=== PATIENT | female | born 1965 | race Caucasian/White ===

== ENCOUNTER 2018-09-20 01:57 | Observation (INO) | payer SELFPAY ==
[2018-09-20] VITALS (8 sets, daily range): BP systolic 118–127; BP diastolic 67–83
[~2018-09-20] VITALS: Ht 157.5 cm; Wt 98.1 kg
--- OUTSIDE RECORDS SUMMARY | 2018-09-20 01:59 | XMS REPORT ---
Author Author [facility] Address Unknown Phone Unavailable Care Team Providers Care Horse Trekking Guide Name Role Phone Unavailable Unavailable Payers Payer Name Policy Type Policy Number Effective Date Expiration Date Problems This patient has no known problems. Allergies, Adverse Reactions, Alerts Allergy Name Allergy Type Status Severity Reaction(s) Onset Date Inactive Date Treating Clinician Comments IODINE CONTRAST DA Active U 2007-05-09 00:00:00 IODINE TOPICAL DA Active U 2007-05-09 00:00:00 No Known Other Allergies DA Active U 2007-05-09 00:00:00 PENICILLIN DA Active U 2007-05-09 00:00:00 SEAFOOD DA Active U 2007-05-09 00:00:00 SHELLFISH DA Active U 2007-05-09 00:00:00 Penicillins DA Active U 2004-08-10 00:00:00 iodine DA Active U 2004-08-10 00:00:00 Medications This patient has no known medications.
[2018-09-20 02:16] LABS: BILIRUBIN,URINE NEGATIVE (NEGATIVE); CLARITY,URINE SL CLOUDY (CLEAR); COLOR,URINE YELLOW (YELLOW); KETONES,URINE NEGATIVE (NEGATIVE); LEUKOCYTE ESTERASE ,URINE TRACE (NEGATIVE); NITRITE,URINE NEGATIVE (NEGATIVE); PROTEIN,URINE DIPSTICK TRACE (NEGATIVE); URINE UROBILINOGEN 0.2 mg/dL (0.2 - 1)
[2018-09-20] MEDS ORDERED: KETOROLAC TROMETHAMINE 30 MG/ML VIAL IV STA (02:23)
[2018-09-20 02:24] LABS: PREGNANCY TEST, URINE NEGATIVE (NEGATIVE)
[2018-09-20 02:27] LABS: BACTERIA,URINE MANY /HPF; EPITHELIAL CELLS,URINE MODERATE /LPF; RBC,URINE >50 /HPF (0-5); WBC,URINE (MAN) >50 /HPF (0-5)
[2018-09-20] MEDS ORDERED: SODIUM CHLORIDE 0.9% 1000ML 1,000 ML IV ONE (02:30)
[2018-09-20 02:34] LABS: BASOPHILS % 0.4 % (0.0-1.0); EOSINOPHILS # (AUTO) 0.2 (0.0-0.4); EOSINOPHILS % 1.6 % (0.0-6.0); HEMATOCRIT 48.2 % (34.2-44.1); HEMOGLOBIN 16.7 g/dL (12.0-16.0); LYMPHOCYTES # (AUTO) 3.4 (1.0-3.2); LYMPHOCYTES % 35.7 % (18.0-39.1); MEAN CORPUSCULAR HEMOGLOBIN 31.9 pg (28-32); MEAN CORPUSCULAR HGB CONC 34.6 g/dL (31-35); MONOCYTES # (AUTO) 0.6 (0.2-0.8); MONOCYTES % 5.7 % (4.4-11.3); NEUTROPHILS # (AUTO) 5.4 (2.1-6.9); NEUTROPHILS % 56.3 % (38.7-80.0); PLATELET COUNT 288 x10e3/uL (140-360); RED BLOOD COUNT 5.24 x10e6/uL (3.6-5.1); RED CELL DISTRIBUTION WIDTH 12.7 % (11.7-14.4)
[2018-09-20 02:48] LABS: ALANINE AMINOTRANSFERASE 18 IU/L (0-55); ALBUMIN/GLOBULIN RATIO 1.2 (0.8-2.0); ALKALINE PHOSPHATASE 53 IU/L (40-150); ANION GAP 16.6 mmol/L (8-16); BLOOD UREA NITROGEN 17 mg/dL (7-26); BUN/CREATININE RATIO 21 (6-25); CARBON DIOXIDE 20 mmol/L (22-29); CHLORIDE 109 mmol/L (98-107); CREATININE, SERUM 0.81 mg/dL (0.57-1.11); EST GLOMERULAR FILTRATION RATE > 60 ML/MIN (60-); GLUCOSE 158 mg/dL (74-118); POTASSIUM 3.6 mmol/L (3.5-5.1); SODIUM 142 mmol/L (136-145)
[2018-09-20] MEDS ORDERED: CEFTRIAXONE SOD 1 GM/NS 50 ML 50 ML IV ONE (03:00)
--- NOTE | 2018-09-20 03:46 | Diagnostic Imaging Report ---
EXAM: CT Abdomen and Pelvis WITHOUT contrast INDICATION: RIGHT FLANK PAIN, HX KIDNEY STONES COMPARISON: None. TECHNIQUE: Abdomen and pelvis were scanned utilizing a multidetector helical scanner from the lung base to the pubic symphysis without administration of IV contrast. Absence of intravenous contrast decreases sensitivity for detection of focal lesions and vascular pathology. Coronal and sagittal reformations were obtained. Routine protocol was performed. IV CONTRAST: None ORAL CONTRAST: None COMPLICATIONS: None RADIATION DOSE: Total DLP: 708 mGy*cm Estimated effective dose: (DLP x 0.015 x size factor) mSv CTDIvol has been reviewed. It is below the limits set by the Radiation Protocol Committee (RPC). Dose modulation, iterative reconstruction, and/or weight based adjustment of the mA/kV was utilized to reduce the radiation dose to as low as reasonably achievable. FINDINGS: LINES and TUBES: None. LOWER THORAX: Unremarkable HEPATOBILIARY: No focal hepatic lesions. No biliary ductal dilation. GALLBLADDER: Surgical clips in the gallbladder fossa. SPLEEN: No splenomegaly. PANCREAS: No focal masses or ductal dilatation. ADRENALS: No adrenal nodules KIDNEYS/URETERS: Right kidney: A 0.6 cm calculus in the proximal right ureter with upstream moderate right hydroureteronephrosis. A nonobstructive 4 mm calculus in the right renal inferior pole calyx. Left kidney:Mild left hydronephrosis. A few nonobstructive 2-3 mm calculi in the left renal inferior pole. No cystic or solid mass lesions. GI TRACT: No abnormal distention, wall thickening, or evidence of bowel obstruction. Appendix is normal. PELVIC ORGANS/BLADDER: Hysterectomy. No adnexal masses.. LYMPH NODES: No lymphadenopathy. VESSELS: There is mild atherosclerotic disease in the aorta. PERITONEUM / RETROPERITONEUM: No free air or fluid. BONES: There are degenerative changes in the lumbar spine. SOFT TISSUES: There is a fat containing para-umbilical hernia. IMPRESSION: 1. A 0.6 cm calculus in the proximal right ureter with upstream moderate right hydroureteronephrosis. 2. Mild left hydronephrosis without clear source for obstruction may be due to stricture at the left renal pelvis. 3. A few additional bilateral nonobstructive calculi within the within the inferior calyces. Signed by: Piter Blount DO on 09/20/2018 3:43 AM
[2018-09-20] MEDS ORDERED: LEVOTHYROXINE100 MCG PO (04:56)
[2018-09-20] MEDS ORDERED: AMLODIPINE BESYL5 MG PO (04:56)
[2018-09-20] MEDS: SODIUM CHLORIDE 0.9% 1000ML 1,000 ML IV SCH ×3 (05:00→20:42)
[2018-09-20] MEDS ORDERED: KETOROLAC TROMETHAMINE 30 MG/ML VIAL IM PRN (05:00)
--- NOTE | 2018-09-20 05:05 | NUR ---
RECEIVED PATIENT AAOX4, AMB W/ STEADY GAIT. DENIES PAIN. RESP EVEN AND UNLABORED, RA. LEFT FA 18G, NS @125. SKIN INTACT. VSS. UPDATED ON PLAN OF CARE. NO NEEDS VOICED. INSTRUCTED TO CALL FOR ASSISTANCE, PATIENT VERBALIZED UNDERSTANDING. REFUSED COAL HANDLER SOCKS- LEFT AT BEDSIDE, REFUSED BED ALARM. AT BEDSIDE. BED LOCKED AND IN LOWEST POSITION, CALL LIGHT WITHIN REACH. WILL CONTINUE TO MONITOR.
--- NOTE | 2018-09-20 07:12 | NUR ---
REPORT GIVEN TO ONCOMING NURSE, PATIENT IN STABLE CONDITION.
--- NOTE | 2018-09-20 07:46 | NUR ---
RECEIVED PATIENT AWAKE RESTING IN BED. NO SIGNS OF DISTRESS. BED LOW, WHEELS LOCKED, SIDE RAILS X2. CALL LIGHT IN REACH WILL CONTINUE TO MONITOR PATIENT.
--- NOTE | 2018-09-20 09:15 | NUR ---
PATIENT A/O X3, EVEN RESPIRATIONS ON RA. LUNG SOUNDS CLEAR TO AUSCULTATION. BOWEL SOUNDS ACTIVE, SKIN INTACT, NO EDEMA. NO PAIN AT THIS TIME. LEFT AC 18 GAUGE NS @ 125 CC/HR. AT BEDSIDE. CALL LIGHT IN REACH. WILL CONTINUE TO MONITOR PATIENT.
--- NOTE | 2018-09-20 14:36 | NUR ---
GAVE PACKET OF INFORMATION WITH [employer] [employer] FOR ASSISTANCE WITH LOW TO NO INCOME TO PATIENT. RESOURCES THAT PATIENT MAY BE ABLE TO FOLLOW UP UPON DISCHARGE. PT EDUCATED ON EACH RESOURCE AND UNDERSTANDING HOW TO FOLLOW UP TO SEE IF QUALIFIED FOR EACH RESOURCE.
--- NOTE | 2018-09-20 19:12 | NUR ---
RECEIVED REPORT. PATIENT AAOX4, STABLE CONDITION. DENIES PAIN. NO NEEDS VOICED. BED LOCKED AND IN LOWEST POSITION, CALL LIGHT WITHIN EASY REACH. WILL CONTINUE TO MONITOR PATIENT.
[2018-09-21 00:02] VITALS: BP 142/87
[2018-09-21] MEDS ORDERED: CEFTRIAXONE SOD 1 GM/NS 50 ML 50 ML IV SCH (03:00)
[2018-09-21] MEDS ORDERED: ACETAMINOPHEN 325 MG TAB PO PRN (04:00)
[2018-09-21] MEDS ORDERED: ONDANSETRON HCL INJ 2MG/ML 2ML 2 MG/ML VIAL IV PRN (04:00)
[2018-09-21] MEDS ORDERED: POLYETHYLENE GLYCOL 3350 17 GM PACK PO PRN (04:00)
[2018-09-21 04:54] VITALS: BP 127/78
[2018-09-21] MEDS: SODIUM CHLORIDE 0.9% 1000ML 1,000 ML IV SCH ×2 (04:55→11:57)
[2018-09-21 04:58] LABS: BASOPHILS % 0.4 % (0.0-1.0); EOSINOPHILS # (AUTO) 0.2 (0.0-0.4); EOSINOPHILS % 2.1 % (0.0-6.0); HEMATOCRIT 44.2 % (34.2-44.1); HEMOGLOBIN 14.9 g/dL (12.0-16.0); LYMPHOCYTES # (AUTO) 2.7 (1.0-3.2); LYMPHOCYTES % 34.9 % (18.0-39.1); MEAN CORPUSCULAR HEMOGLOBIN 31.4 pg (28-32); MEAN CORPUSCULAR HGB CONC 33.7 g/dL (31-35); MEAN CORPUSCULAR VOLUME 93.2 fL (81-99); MONOCYTES # (AUTO) 0.7 (0.2-0.8); MONOCYTES % 9.1 % (4.4-11.3); NEUTROPHILS % 53.2 % (38.7-80.0); PLATELET COUNT 238 x10e3/uL (140-360); RED BLOOD COUNT 4.74 x10e6/uL (3.6-5.1); RED CELL DISTRIBUTION WIDTH 12.6 % (11.7-14.4)
[2018-09-21 05:09] LABS: ANION GAP 12.5 mmol/L (8-16); BLOOD UREA NITROGEN 11 mg/dL (7-26); BUN/CREATININE RATIO 17 (6-25); CARBON DIOXIDE 23 mmol/L (22-29); CHLORIDE 112 mmol/L (98-107); CHOL/HDL RATIO 3.5 (3.0-3.6); CHOLESTEROL 147 MD/DL (0-199); CREATININE, SERUM 0.64 mg/dL (0.57-1.11); EST GLOMERULAR FILTRATION RATE > 60 ML/MIN (60-); GLUCOSE 102 mg/dL (74-118); HDL CHOLESTEROL 42 MG/DL (40-60); LDL CHOLESTEROL 81 MG/DL (60-130); MAGNESIUM 2.4 MG/DL (1.3-2.1); PHOSPHORUS 3.3 MG/DL (2.3-4.7); POTASSIUM 3.5 mmol/L (3.5-5.1); SODIUM 144 mmol/L (136-145); TRIGLYCERIDES 119 MG/DL (0-149)
[2018-09-21] MEDS ORDERED: TRAMADOL HCL 50 MG TAB PO PRN (05:15)
[2018-09-21] MEDS ORDERED: HYDRALAZINE HCL 20 MG/ML VIAL IV PRN (05:15)
[2018-09-21 06:26] LABS: BILIRUBIN,URINE NEGATIVE (NEGATIVE); CLARITY,URINE SL CLOUDY (CLEAR); COLOR,URINE YELLOW (YELLOW); KETONES,URINE NEGATIVE (NEGATIVE); LEUKOCYTE ESTERASE ,URINE NEGATIVE (NEGATIVE); NITRITE,URINE NEGATIVE (NEGATIVE); PROTEIN,URINE DIPSTICK NEGATIVE (NEGATIVE); URINE UROBILINOGEN 0.2 mg/dL (0.2 - 1)
[2018-09-21] MEDS ORDERED: LEVOTHYROXINE SODIUM 125 MCG TAB PO SCH (06:30)
[2018-09-21 06:33] LABS: BACTERIA,URINE RARE /HPF; EPITHELIAL CELLS,URINE FEW /LPF; MUCUS,URINE FEW (RARE); WBC,URINE (MAN) 0-5 /HPF (0-5)
--- NOTE | 2018-09-21 07:09 | NUR ---
RECEIVED PATIENT ASLEEP IN BED NO S/S OF DISTRESS. PRESENT AT BEDSIDE. WHEELS LOCKED, BED IN LOW POSITION, SIDE RAILS X2. CALL LIGHT IN REACH. WILL CONTINUE TO MONITOR PATIENT.
[2018-09-21] MEDS ORDERED: FAMOTIDINE 20 MG TAB PO SCH (07:30)
[2018-09-21 08:14] VITALS: BP 128/67
[2018-09-21] MEDS ORDERED: LEVOTHYROXINE SODIUM 100 MCG TAB PO SCH (09:00)
[2018-09-21] MEDS ORDERED: AMLODIPINE BESYLATE 5 MG TAB PO SCH (09:00)
[2018-09-21] MEDS ORDERED: DOCUSATE SODIUM 100 MG CAP PO SCH (09:00)
[2018-09-21 09:58] VITALS: BP 128/67
[2018-09-21 11:54] VITALS: BP 139/62
[2018-09-21] MEDS ORDERED: TYLENOL WITH C1 EACH PO (13:01)
[2018-09-21] MEDS ORDERED: SYNTHROID125 MCG PO (13:01)
[2018-09-21] MEDS ORDERED: CEFDINIR300 MG PO (13:01)
--- NOTE | 2018-09-21 14:00 | NUR ---
REMOVED PATIENTS IV. CATHETER TIP INTACT AND PRESSURE DRESSING APPLIED.
--- NOTE | 2018-09-21 14:24 | NUR ---
PATIENT DISCHARGED FROM FACILITY. PATIENT GATHERED ALL PERSONAL BELONGINGS, DISCHARGE INSTRUCTIONS, AND FOLLOW UP INFORMATION. PATIENT LEFT UNIT IN WHEELCHAIR AND WENT HOME VIA PRIVATE AUTO. NO SIGNS OF DISTRESS WHEN LEAVING FACILITY.
--- NOTE | 2018-09-22 01:17 | Discharge Summary ---
ADMISSION DIAGNOSES: Right ureteral calculus with moderate right hydroureteronephrosis, urinary tract infection present on admission, hypertension, hypothyroidism. DISCHARGE DIAGNOSES: Right ureteral calculus with moderate right hydroureteronephrosis, urinary tract infection present on admission, hypertension, hypothyroidism. HISTORY: The patient has a history of kidney stones, hypertension, hypothyroidism. SURGICAL HISTORY: Cholecystectomy, hysterectomy, ovarian cyst. FAMILY HISTORY: The patient's father had cardiomyopathy. The patient's mother has scleroderma. SOCIAL HISTORY: The patient admits to quitting alcohol use 3 months ago. She denies tobacco or illicit drug use. HOSPITAL COURSE: A 53-year-old female with history of kidney stone, began having right flank pain and right lower abdominal pain 2 weeks ago. She then passed a kidney stone on September 08. Urine became bloody than clear, so she felt another stone was present. Right abdominal pain returned and was severe on . Thus, the patient came to the ER. On admission, the patient had a CT of the abdomen and pelvis that showed a 0.6 cm calculus in the proximal right ureter with upstream moderate right hydroureteronephrosis, mild left hydronephrosis without clear source of obstruction. Initial urine culture showed wbc of over 50, leukocytes. The patient was started on Rocephin. Urology was consulted, but the patient was advised to follow up with [facility] for management of the calculus. Her pain is well controlled. Repeat UA was done with negative leukocyte and 0 to 5 wbc's. She was discharged home with [employer]. Her levothyroxine was increased to 125 mcg daily because her TSH was 6. She was also given Tylenol No. 3 p.r.n. She will follow up with primary care in 1 to 2 weeks and [facility] as discussed. The patient understands discharge instructions and agrees to plan. Vital signs stable, the patient afebrile. Dictated by Lin Browne, AIRAM MD DENISE Cobb/DAYANA /[id number]
== END 2018-09-21 14:24 | disposition home or self-care (01) ==
LOC: ER 01:57 → ERHOLD 04:18 → MED/SURG 05:09
PROVIDERS: ADMIT Internal Medicine; ATTEND Internal Medicine
DX: N13.6 Pyonephrosis (principal); N30.01 Acute cystitis with hematuria; I10 Essential (primary) hypertension; E03.9 Hypothyroidism, unspecified; E66.9 Obesity, unspecified; Z91.041 Radiographic dye allergy status; Z88.0 Allergy status to penicillin; Z91.013 Allergy to seafood; Z87.442 Personal history of urinary calculi; Z82.49 Family history of ischemic heart disease and other diseases of the circulatory system; Z84.89 Family history of other specified conditions; Z68.39 Body mass index [BMI] 39.0-39.9, adult; F10.21 Alcohol dependence, in remission
CPT/HCPCS: 36415 ×2; 74176; 80048; 80053; 80061; 81001 ×2; 81025; 83036; 83735; 84100; 84443; 85025 ×2; 87086; 96374; 99284; G0378 ×2; J0696 ×2; J1885; J7030 ×2